=== PATIENT | female | born 1970 | race African-American/Black ===

== ENCOUNTER 2018-04-29 23:43 | Emergency (ER) | payer SELFPAY ==
[2018-04-29 23:49] VITALS: BP 132/68
--- NOTE | 2018-04-30 00:14 | EKG REPORT ---
SEVERITY:- OTHERWISE NORMAL ECG - SINUS TACHYCARDIA : Confirmed by: Damien Carlos 30-Apr-2018 00:13:15
--- NOTE | 2018-04-30 00:51 | ER Document Report ---
ED General - General Chief Complaint: Other Stated Complaint: HICCUPS Time Seen by Provider: 04/29/18 23:53 TRAVEL OUTSIDE OF THE [place] IN LAST 30 DAYS: No - HPI Patient complains to provider of: intractable hiccups Notes: 47-year-old HIV positive transgender male to female in no acute distress presents to the emergency room for intractable hiccups. She endorses on Wednesday she had a procedure and was either intubated or had an LMA placed. The following day she noted she was having hiccups that would not stop they persisted up until she entered the emergency room this evening. She called her primary doctor yesterday who prescribed her Reglan over the phone. She states that the Reglan did not help. Patient denies any history of GERD, malignancy, recent dexamethasone use. She is on HAART therapy and hormone therapy for her transition - Related Data Allergies/Adverse Reactions: amoxicillin [Amoxicillin] Allergy (Verified 04/30/18 00:15) Past Medical History - General Information source: Patient - Social History Smoking Status: Never Smoker Chew tobacco use (# tins/day): No Frequency of alcohol use: None Drug Abuse: None Family History: Reviewed & Not Pertinent Patient has suicidal ideation: No Patient has homicidal ideation: No Renal/ Medical History: Denies: Hx Peritoneal Dialysis Malignancy Medical History: Denies: None Infectious Medical History: Reports: Hx HIV - Immunizations Hx Diphtheria, Pertussis, Tetanus Vaccination: No Review of Systems - Review of Systems Constitutional: No symptoms reported EENT: No symptoms reported Cardiovascular: No symptoms reported Respiratory: No symptoms reported Gastrointestinal: See HPI Genitourinary: No symptoms reported Female Genitourinary: No symptoms reported Musculoskeletal: No symptoms reported Skin: No symptoms reported Hematologic/Lymphatic: No symptoms reported Neurological/Psychological: No symptoms reported Physical Exam - Vital signs Vitals: Temp Pulse Resp BP Pulse Ox 98.2 F 107 H 18 132/68 H 100 04/29/18 23:47 04/29/18 23:47 04/29/18 23:47 04/29/18 23:47 04/29/18 23:47 Interpretation: Normal - General General appearance: Appears well, Alert In distress: None - HEENT Head: Normocephalic, Atraumatic Eyes: Normal Conjunctiva: Normal Extraocular movements intact: Yes Pupils: PERRL - Respiratory Respiratory status: No respiratory distress Chest status: Nontender Breath sounds: Normal Chest palpation: Normal - Cardiovascular Rhythm: Regular Heart sounds: Normal auscultation Murmur: No - Abdominal Inspection: Normal Distension: No distension Bowel sounds: Normal Tenderness: Nontender Organomegaly: No organomegaly - Back Back: Normal, Nontender - Extremities General upper extremity: Normal inspection, Nontender, Normal color, Normal ROM , Normal temperature General lower extremity: Normal inspection, Nontender, Normal color, Normal ROM , Normal temperature, Normal weight bearing. No: Madelyn's sign - Neurological Neuro grossly intact: Yes Cognition: Normal Orientation: AAOx4 [place] Coma Scale Eye Opening: Spontaneous [place] Coma Scale Verbal: Oriented [place] Coma Scale Motor: Obeys Commands [place] Coma Scale Total: 15 Speech: Normal Motor strength normal: LUE, RUE, LLE, RLE Sensory: Normal - Psychological Associated symptoms: Normal affect, Normal mood - Skin Skin Temperature: Warm Skin Moisture: Dry Skin Color: Normal Course - Re-evaluation Re-evalutation: 04/30/18 00:56 Patient endorses that her hiccups were intractable until she entered the emergency room. She has not had any hiccups since being here. Plan to the patient this is most likely phrenic nerve irritation secondary to other LMA or endotracheal tube placement. Patient has no evidence of malignancy or is not taking any medications that could exacerbate hiccups. Patient does not have hiccups Thorazine is not dictated in the emergency department. Patient is instructed to follow-up with her primary doctor next week. - Vital Signs Vital signs: Temp Pulse Resp BP Pulse Ox 98.2 F 107 H 18 132/68 H 100 04/29/18 23:47 04/29/18 23:47 04/29/18 23:47 04/29/18 23:47 04/29/18 23:47 Discharge - Discharge Clinical Impression: Hiccups Condition: Good Disposition: HOME, SELF-CARE Instructions: Hiccups ([facility]) Additional Instructions: Hiccups Hiccups are contractions of the diaphragm muscle. They usually occur without warning, but they may follow over-eating or drinking large amounts of soda. Hiccups are usually harmless. We don't know why some people have prolonged bouts of hiccups. Most of the time, they will eventually go away without treatment. Medication can be prescribed to help control hiccups. If hiccups persist, you'll need a medical work-up to see if there's any underlying illness. Return if there's any significant change, such as chest pain , abdominal pain, vomiting, or fever.
== END 2018-04-30 00:55 | disposition home or self-care (01) ==
LOC: ER 23:43
DX: R06.6 Hiccough (principal); Z21 Asymptomatic human immunodeficiency virus [HIV] infection status; Z98.890 Other specified postprocedural states; Z79.899 Other long term (current) drug therapy; Z88.0 Allergy status to penicillin
CPT/HCPCS: 93005; 93010; 99283